=== PATIENT | female | born 1935 | race Caucasian/White ===

== ENCOUNTER 2023-06-08 22:13 | Inpatient (IN) | payer MEDICAID, MEDICARE ==
[~2023-06-08] VITALS: Ht 149.9 cm; Wt 43.5 kg
[2023-06-08 22:24] VITALS: BP_SYST 153; PULSE 70; RESP 20; TEMP 98.1; O2SAT 97
--- NOTE | 2023-06-08 23:19 | NUR ---
Patient to ER bed 05 to gown for evaluation. Side rails up. Report given to MARIPOSA GARCIA.
--- NOTE | 2023-06-08 23:20 | NUR ---
PT CAME VIA EMS FROM [facility], WHO SENT PT BECAUSE SHE IS EXPERIENCING DIFFICULTY SWALLOWING. PENDING md ASSESSMENT
--- NOTE | 2023-06-08 23:30 | NUR ---
ER AT BEDSIDE
[2023-06-08 23:42] LABS: BASOPHILS # (AUTO) 0.1 K/uL (0.0-0.2); BASOPHILS % (AUTO) 0.8 % (0.0-2.0); EOSINOPHILS # (AUTO) 0.2 K/uL (0.0-0.4); EOSINOPHILS % (AUTO) 2.5 % (0.0-4.0); HEMATOCRIT 37.9 % (36-48); HEMOGLOBIN 12.3 g/dL (12.0-16.0); LYMPHOCYTES # (AUTO) 1.7 K/uL (1.0-5.5); MEAN CORPUSCULAR HEMOGLOBIN 32 pg (27-31); MEAN CORPUSCULAR HGB CONC 33 % (32-36); MEAN CORPUSCULAR VOLUME 100 fL (79.0-98.0); MONOCYTES # (AUTO) 0.3 K/uL (0.0-1.0); MONOCYTES % (AUTO) 4.3 % (1.7-9.3); NEUTROPHILS # (AUTO) 4.8 K/uL (1.8-7.7); NEUTROPHILS % (AUTO) 68.4 % (40.0-70.0); PLATELET COUNT (AUTO) 192 K/uL (130-430); RED BLOOD CELL COUNT(AUTO) 3.81 MIL/uL (4.2-6.2); RED CELL DISTRIBUTION WIDTH 14.4 % (9.0-15.0)
[2023-06-08 23:55] LABS: ANION GAP 7 (5-15); CALCIUM 8.6 mg/dL (8.4-11.0); CHLORIDE 112 mmol/L (98-107); CREATININE 0.91 mg/dL (0.55-1.30); GLUCOSE 160 mg/dL (74-106); UREA NITROGEN, BLOOD 16 mg/dL (8-21)
[2023-06-09] LABS: ALANINE AMINOTRANSFERASE 6 U/L (12-78); ALBUMIN 2.8 g/dL (3.4-4.8); ASPARTATE AMINOTRANSFERASE 14 U/L (10-37); TOTAL BILIRUBIN 0.8 mg/dL (0.0-1.0)
--- NOTE | 2023-06-09 02:25 | NUR ---
Pt straight cath done for urine collection, 200 ml urine in bag. Urine color brown w/ visible thick seddiments. Pt tolerated well no s/s of distress noted. Urine taken to lab.
[2023-06-09 02:32] LABS: BILIRUBIN,URINE 2+ (NEGATIVE); BLOOD, URINE 3+ (NEGATIVE); CLARITY/URINE TURBID (CLEAR); GLUCOSE,URINE NEGATIVE (NEGATIVE); KETONES,URINE TRACE (NEGATIVE); LEUKOCYTE ESTERASE ,URINE 3+ (NEGATIVE); NITRITE, URINE POSITIVE (NEGATIVE); PROTEIN URINE 2+ (NEGATIVE)
[2023-06-09 02:39] LABS: COLOR,URINE AMBER (YELLOW)
[2023-06-09 02:47] LABS: BACTERIA,URINE MANY /HPF (None Seen); RBC,URINE >100 /HPF (0-3)
[2023-06-09 02:49] LABS: TRIPLE PHOSPHATE CRYSTAL,UR 0-10 /HPF (None Seen)
[2023-06-09] MEDS ORDERED: NACL 0.9% 1,000 ML IV ONE (03:00)
[2023-06-09] MEDS ORDERED: cefTRIAXone 1 GM in D5W 50 ML IV ONE (03:00)
--- NOTE | 2023-06-09 03:56 | NUR ---
Note teodoro in EDM - 06/09/23 at 0737 by [email or web address] Admit bed requested Patient will be admitted to care of Dr.M. Curtis. Admitted to Med Surg unit. Diagnosis UTI Inpatient (Yes or No) Observation (Yes or No) Orientation concerns or request close to nursing station (Yes or No) Covid Status On vent or bipap Isolation requirements Needs a sitter From Home (Yes or if No enter name of facility) [facility] Requires Dialysis (Yes or No) Med Rec Completed (Yes of No)
--- NOTE | 2023-06-09 03:56 | NUR ---
Admit bed requested Patient will be admitted to care of Dr. Orosco. Admitted to unit. Diagnosis Inpatient (Yes or No) Observation (Yes or No) Orientation concerns or request close to nursing station (Yes or No) Covid Status On vent or bipap Isolation requirements Needs a sitter [N From Home (Yes or if No enter name of facility) [N] [facility] Requires Dialysis (Yes or No) [N] Med Rec Completed (Yes of No) [Y]
[2023-06-09] MEDS ORDERED: AMLO5TAB4 PO (04:04)
[2023-06-09] MEDS ORDERED: LIP10 PO (04:05)
[2023-06-09] MEDS ORDERED: CELE200C PO (04:06)
[2023-06-09] MEDS ORDERED: APIX5TAB4 PO (04:07)
[2023-06-09] MEDS ORDERED: OMEG-95 PO (04:08)
[2023-06-09] MEDS ORDERED: PRO20 PO (04:09)
[2023-06-09] MEDS ORDERED: LEVE250T2 PO (04:10)
[2023-06-09] MEDS ORDERED: LOPE2CAP PO (04:10)
[2023-06-09] MEDS ORDERED: DICL100G33 TP (04:12)
[2023-06-09] MEDS ORDERED: LINA145C PO (04:13)
[2023-06-09] MEDS ORDERED: MELO10CA2 PO (04:15)
[2023-06-09] MEDS ORDERED: MEMA28CA PO (04:16)
[2023-06-09] MEDS ORDERED: MULT-1117 PO (04:16)
[2023-06-09] MEDS ORDERED: HYDR-3917 PO (04:17)
[2023-06-09] MEDS ORDERED: CALC-1263 PO (04:18)
[2023-06-09] MEDS ORDERED: BISM262O28 PO (04:19)
[2023-06-09] MEDS ORDERED: POTA-197 PO (04:20)
[2023-06-09] MEDS ORDERED: MIRT-114 PO (04:21)
[2023-06-09] MEDS ORDERED: SACC250C12 PO (04:22)
[2023-06-09] MEDS ORDERED: TRAM50TA2 PO (04:23)
[2023-06-09] MEDS ORDERED: ACET325T PO (04:24)
[2023-06-09] MEDS ORDERED: ASCO500T20 PO (04:25)
[2023-06-09] MEDS ORDERED: NS 500 ML IV ONE (04:30)
[2023-06-09] MEDS ORDERED: VITD2000 PO (04:32)
[2023-06-09] MEDS ORDERED: cefTRIAXone 1 GM VIAL ONE (05:27)
--- NOTE | 2023-06-09 06:00 | NUR ---
Pt was a difficult stick for an IV. 2nd attempt, 22g IV inserted. pt tolerated well, ivf/ iv anti Bx given as per orders
--- NOTE | 2023-06-09 07:00 | NUR ---
Pt is predominantly a amharic speaker
--- NOTE | 2023-06-09 07:48 | NUR ---
MED SURG REPORT GIVEN TO MARIPOSA MERAZ. OPPURTUNITY FOR QUESTIONS AND ANSWERS.
--- NOTE | 2023-06-09 08:05 | NUR ---
Patient will be admitted to care of HOSPITALIST. Admitted to MEDSURG unit. Will go to room 113B. Belongings list completed. Complete and up to date summary report printed. SBAR report to be given at bedside with opportunity for questions.
--- NOTE | 2023-06-09 08:10 | NUR ---
ADMISSION NOTES: RECEIVED PT FROM E.R C/O MARIPOSA CRAIG, PT ADMITTED WITH DC OF UTI UNDER DR Patricia SEQUEIRA. PT IS AO X1, EDUCATED ON THE USE OF CALL LIGHT , TV AND BED CONTROLS. PT NEEDS FURTHER INSTRUCTION.
[2023-06-09 09:00] VITALS: O2SAT 99
--- NOTE | 2023-06-09 10:44 | NUR ---
CONSULTATION PAGED/CALLED Reason for Consultation: [] DYSPHAGIA Person Who was Notified: [] SHU Consulting Physician: [] DR Timbo DE LA CRUZ Mathematical Scientist Specialty: [] GI Ordering Physician: [] DR SEQUEIRA
[2023-06-09] MEDS ORDERED: LORazepam 2 MG/ML VIAL IVP PRN (10:45)
[2023-06-09] MEDS ORDERED: ONDANSETRON HCL 4 MG/2 ML VIAL IVP PRN (10:45)
--- NOTE | 2023-06-09 10:52 | NUR ---
CONSULTATION PAGED REASON FOR CONSULTATION: DYSPHAGIA WAS CONSULT CALLED? Y PERSON WHO WAS NOTIFIED: CARMEN CONSULTING PHYSICIAN: TIP CEMENTER SPECIALTY: GI TIP CEMENTER PHONE NUMBER: [phone] REQUESTING PHYSICIAN: GERTRUDE KAPOOR
--- NOTE | 2023-06-09 10:55 | NUR ---
CONSULTATION PAGED/CALLED Reason for Consultation: [] SEPSIS Person Who was Notified: [] SACHA Consulting Physician: [] DR ANTONIO MULLEN Biofuels Production Technician Specialty: [] ID Ordering Physician: [] DR SEQUEIRA
[2023-06-09] MEDS: D5/0.45 NS 1,000 ML IV SCH ×2 (11:00→22:06)
[2023-06-09 14:23] VITALS: BP_SYST 158; PULSE 70; RESP 42; TEMP 97.8
--- NOTE | 2023-06-09 16:18 | NUR ---
DIFFICULTY SWALLOWING PER RN MUMTAZ, PT STARTED TO SHOW SIGNS OF DIFFICULTY SWALLOWING 3DAYS AGO. DURING THIS TIME, PT WAS NOTED NOT SWALLOWING SOME PARTICULAR ITEMS DURING MEALS BUT THEN YESTERDAY , PT HAS MORE DIFFICULTY SWALLOWING HER FOOD.
[2023-06-09 17:00] VITALS: BP_SYST 150; PULSE 70; RESP 24; TEMP 97.9; O2SAT 99
[2023-06-09] MEDS ORDERED: POTASSIUM CHLORIDE 40 MEQ, LIDOCAINE JECT 2% PF 100 MG 50 MG in NS 250 ML IV ONE (18:00)
[2023-06-09 20:00] VITALS: BP_SYST 142; PULSE 70; RESP 20; TEMP 97.5; O2SAT 100
--- NOTE | 2023-06-09 20:14 | NUR ---
ST EVALUATION COMPLETED. ST TX NOT INDICATED AT THIS TIME. RECOMMEND PO DIET OF PUREE/THIN LIQUID. 1:1 FEEDER AND FULL ASPIRATION PRECAUTIONS
[2023-06-10] VITALS (7 sets, daily range): BP systolic 137–154; PULSE 68–73; RESP 14–20; TEMP 97.5–98.2; O2SAT 94–100
[2023-06-10 05:27] LABS: BASOPHILS # (AUTO) 0.1 K/uL (0.0-0.2); BASOPHILS % (AUTO) 1.1 % (0.0-2.0); EOSINOPHILS # (AUTO) 0.2 K/uL (0.0-0.4); EOSINOPHILS % (AUTO) 2.6 % (0.0-4.0); HEMATOCRIT 39.1 % (36-48); HEMOGLOBIN 12.6 g/dL (12.0-16.0); LYMPHOCYTES # (AUTO) 2.3 K/uL (1.0-5.5); LYMPHOCYTES % (AUTO) 39.1 % (20.5-51.5); MEAN CORPUSCULAR HEMOGLOBIN 32 pg (27-31); MEAN CORPUSCULAR HGB CONC 32 % (32-36); MEAN CORPUSCULAR VOLUME 100 fL (79.0-98.0); MONOCYTES # (AUTO) 0.3 K/uL (0.0-1.0); MONOCYTES % (AUTO) 5.7 % (1.7-9.3); NEUTROPHILS # (AUTO) 3.1 K/uL (1.8-7.7); NEUTROPHILS % (AUTO) 51.5 % (40.0-70.0); PLATELET COUNT (AUTO) 165 K/uL (130-430); RED BLOOD CELL COUNT(AUTO) 3.91 MIL/uL (4.2-6.2); RED CELL DISTRIBUTION WIDTH 14.5 % (9.0-15.0)
[2023-06-10 05:55] LABS: ALANINE AMINOTRANSFERASE 5 U/L (12-78); ALBUMIN 2.7 g/dL (3.4-4.8); ANION GAP 11 (5-15); ASPARTATE AMINOTRANSFERASE 12 U/L (10-37); CALCIUM 8.1 mg/dL (8.4-11.0); CHLORIDE 112 mmol/L (98-107); CREATININE 0.59 mg/dL (0.55-1.30); GLUCOSE 129 mg/dL (74-106); TOTAL BILIRUBIN 0.7 mg/dL (0.0-1.0); UREA NITROGEN, BLOOD 8 mg/dL (8-21)
[2023-06-10] MEDS: D5/0.45 NS 1,000 ML IV SCH ×2 (06:37→12:50)
--- NOTE | 2023-06-10 07:45 | NUR ---
Opening Nurse Notes: Patient A/LO X1. Patient speaks Marshallese. Patient sleeping quietly in bed. Patient breathing even on room air. No pain, no SOB, no distress. Call light is within reach, bed in lowest position. Will continue with plan of care.
[2023-06-10] MEDS: cefTRIAXone 1 GM IVPB PREMIX 50 ML IV SCH (10:22)
--- NOTE | 2023-06-10 12:20 | NUR ---
Afternoon Nurse Notes: Patient lying in bed resting quietly. No SOB, no distress, no pain. Call light within reach. Bed locked and in lowest position. Patient is cooperative, daughter is at bedside. Will continue with plan of care.
[2023-06-10] MEDS ORDERED: K PHOS 15 MM in NS 250 ML IV ONE (13:00)
--- NOTE | 2023-06-10 15:13 | NUR ---
Dietitian Recommendations * Continue Pureed diet (ONS Ensure TID comes standard w/ current diet; ONS yields 1050 kcal/day, 60 gm protein/day) LP, MS, RD Please refer to Nutrition Assessment for details Addendum: 06/10/23 at [address] Amended: Links added.
--- NOTE | 2023-06-10 16:10 | NUR ---
Late Afternoon Nurse Notes: Patient lying in bed quietly. Pitcher of water is at bedside. No SOB, no distress, no pain. Call light within reach. Bed locked and in lowest position. Will continue with plan of care.
--- NOTE | 2023-06-10 19:10 | NUR ---
Closing Nurse Notes: Patient A/LO X1. Patient relaxing quietly in bed. Patient breathing even on room air. No pain, mild SOB, mild distress. Call light is within reach, bed in lowest position. Patient and care endorsed to security shift supervisor LESLY Hannah. Endorsed that patient was cooperative today.
--- NOTE | 2023-06-10 20:00 | NUR ---
OPENING NOTE PT LYING IN BED AND EYES CLOSED. A/OX1. UNABLE TO BREATHING EVEN AND NONLABORED ON RA. NO S/S OF ACUTE DISTRESS OR PAIN. IV RUNNING @ 1000 ON LEFT FOREARM. SAFETY CHECKS IN PLACE. CALL LIGHT IN REACH. CONTINUE TO MONITOR Addendum: 06/11/23 at 0322 by Camden Yi LVN IV RATE IS 100mL
--- NOTE | 2023-06-10 21:30 | NUR ---
BM PT HAD BM. PROVIDED PERINEAL CARE AND CHANGED LINENS. PT TOLERATED CHANGING HER POSITION.
[2023-06-11] VITALS (7 sets, daily range): BP systolic 137–148; PULSE 68–74; RESP 17–20; TEMP 96.2–97.5; O2SAT 94–99
[2023-06-11] MEDS: D5/0.45 NS 1,000 ML IV SCH ×3 (02:45→22:45)
--- NOTE | 2023-06-11 03:22 | NUR ---
ROUNDING NOTE PT LYING IN BED AND EYES CLOSED. BREATHING EVEN AND NONLABORED ON RA. ALL COMFORT MEASURE MET AT THIS MOMENT. SAFETY CHECKS IN PLACE. CALL LIGHT IN REACH. CONTINUE TO MONITOR
--- NOTE | 2023-06-11 06:58 | NUR ---
CLOSING NOTE PT LYING IN BED AND EYES CLOSED. BREATHING EVEN AND NONLABORED ON RA. IV RUNNING @100mL. NO S/S OF ACUTE DISTRESS OR PAIN. SAFETY CHECKS IN PLACE. CALL LIGHT IN REACH. ENDORSED TO DAY SHIFT NURSE
[2023-06-11 07:13] LABS: BASOPHILS # (AUTO) 0.1 K/uL (0.0-0.2); BASOPHILS % (AUTO) 0.8 % (0.0-2.0); EOSINOPHILS # (AUTO) 0.2 K/uL (0.0-0.4); EOSINOPHILS % (AUTO) 2.6 % (0.0-4.0); HEMATOCRIT 34.4 % (36-48); HEMOGLOBIN 11.3 g/dL (12.0-16.0); MEAN CORPUSCULAR HEMOGLOBIN 33 pg (27-31); MEAN CORPUSCULAR HGB CONC 33 % (32-36); MEAN CORPUSCULAR VOLUME 99 fL (79.0-98.0); MONOCYTES # (AUTO) 0.4 K/uL (0.0-1.0); MONOCYTES % (AUTO) 6.2 % (1.7-9.3); NEUTROPHILS # (AUTO) 3.5 K/uL (1.8-7.7); NEUTROPHILS % (AUTO) 57.4 % (40.0-70.0); PLATELET COUNT (AUTO) 159 K/uL (130-430); RED BLOOD CELL COUNT(AUTO) 3.46 MIL/uL (4.2-6.2); RED CELL DISTRIBUTION WIDTH 14.8 % (9.0-15.0); WHITE BLOOD COUNT (AUTO) 6.1 K/uL (4.8-10.8)
[2023-06-11 07:37] LABS: ANION GAP 10 (5-15); CALCIUM 8.1 mg/dL (8.4-11.0); CHLORIDE 113 mmol/L (98-107); CREATININE 0.66 mg/dL (0.55-1.30); GLUCOSE 111 mg/dL (74-106); UREA NITROGEN, BLOOD 8 mg/dL (8-21)
[2023-06-11 07:50] LABS: ERYTHROCYTE SEDIMENTATION RATE 12 MM/HR (0-20)
--- NOTE | 2023-06-11 08:24 | NUR ---
opening notes: pt in bed with eyes closed. updated patient board. no s/s of distress or pain noted. breathing is even and unlabored on RA 99%. all needs met at this time, safety checks made and call light within reach.
[2023-06-11] MEDS: cefTRIAXone 1 GM IVPB PREMIX 50 ML IV SCH (09:05)
--- NOTE | 2023-06-11 19:30 | NUR ---
OPENING NOTE PT LYING IN BED AND EYES CLOSED. IN CONTACT ISOLATION ROOM. A/OX1. BREATHING EVEN AND NONLABORED ON RA. NO S/S ACUTE DISTRESS OR PAIN. SAFETY CHECKS IN PLACE. CALL LIGHT IN REACH. CONTINUE TO MONITOR
--- NOTE | 2023-06-11 19:53 | NUR ---
closing notes: patient in bed with eyes closed. no s/s of distress or pain reported. breathing is even and labored on RA. patient placed on contact precautions and moved to new room for esbl-mdro in the urine. reported to gordy marsh. all needs met at this time, safety checks made and call light within reach. will endorse to shift production associate nurse.
--- NOTE | 2023-06-11 22:20 | NUR ---
BM PT HAD BM. LOOSE STOOL. LIGHT BROWN. PT TRIED TO TURN AND HOLD HER POSITION. PERFORM GOOD PERINEAL CARE. SAFETY CHECKS IN PLACE. CALL LIGHT IN REACH. CONTINUE TO MONITOR
[2023-06-12] VITALS: BP_SYST 150; PULSE 69; RESP 18; TEMP 96.8; O2SAT 96
--- NOTE | 2023-06-12 03:05 | NUR ---
ROUNDING NOTE PT LYING BED AND EYES CLOSED. BREATHING EVEN AND NONLABORED. ALL COMFORT MEASURE MET AT THIS MOMENT. SAFETY CHECKS IN PLACE. CALL LIGHT IN REACH. CONTINUE TO MONITOR
[2023-06-12] MEDS: D5/0.45 NS 1,000 ML IV SCH ×2 (05:27→18:45)
--- NOTE | 2023-06-12 07:38 | NUR ---
CLOSING NOTE PT LYING IN BED AND EYES CLOSED. BREATHING EVEN ON RA. A/OX1. IV RUNNING @ 100mL. SAFETY CHECKS IN PLACE. CALL LIGHT IN REACH. ENDORSED TO DAY SHIFT NURSE
[2023-06-12 08:00] VITALS: BP_SYST 161; PULSE 70; RESP 15; TEMP 97.2; O2SAT 99
--- NOTE | 2023-06-12 08:05 | NUR ---
opening notes: patient in bed with eyes closed. patient looked at me when i said her name. no s/s of distress or pain reported. breathing is even and unlabored on RA 99%. safety checks made and call light within reach.
[2023-06-12] MEDS: NITROFURANTOIN MONOHYD/M-CRYST 100 MG CAPSULE (MacroBID) PO SCH (08:40)
--- NOTE | 2023-06-12 08:46 | NUR ---
patient took oral morning medication with applesauce. when i asked her to swallow she nodded yes and then swallowed the medication. prepared patient LENY and dated cup. had patient take a few sips of LENY. safety checks made, bed alarm on and call light within reach.
[2023-06-12 08:51] LABS: BASOPHILS # (AUTO) 0.1 K/uL (0.0-0.2); BASOPHILS % (AUTO) 1.1 % (0.0-2.0); EOSINOPHILS # (AUTO) 0.2 K/uL (0.0-0.4); EOSINOPHILS % (AUTO) 3.2 % (0.0-4.0); HEMATOCRIT 34.6 % (36-48); HEMOGLOBIN 11.3 g/dL (12.0-16.0); LYMPHOCYTES # (AUTO) 2.3 K/uL (1.0-5.5); LYMPHOCYTES % (AUTO) 42.3 % (20.5-51.5); MEAN CORPUSCULAR HEMOGLOBIN 32 pg (27-31); MEAN CORPUSCULAR HGB CONC 33 % (32-36); MEAN CORPUSCULAR VOLUME 99 fL (79.0-98.0); MONOCYTES # (AUTO) 0.3 K/uL (0.0-1.0); MONOCYTES % (AUTO) 5.2 % (1.7-9.3); NEUTROPHILS # (AUTO) 2.6 K/uL (1.8-7.7); NEUTROPHILS % (AUTO) 48.2 % (40.0-70.0); PLATELET COUNT (AUTO) 171 K/uL (130-430); RED CELL DISTRIBUTION WIDTH 14.6 % (9.0-15.0); WHITE BLOOD COUNT (AUTO) 5.4 K/uL (4.8-10.8)
[2023-06-12 08:52] LABS: ANION GAP 8 (5-15); CALCIUM 8.6 mg/dL (8.4-11.0); CHLORIDE 112 mmol/L (98-107); CREATININE 0.59 mg/dL (0.55-1.30); GLUCOSE 79 mg/dL (74-106); UREA NITROGEN, BLOOD 6 mg/dL (8-21)
--- NOTE | 2023-06-12 09:02 | NUR ---
LEAH ATTENDING MD, DR SEQUEIRA FOR CRITICAL LAB.
[2023-06-12 09:05] LABS: ERYTHROCYTE SEDIMENTATION RATE 16 MM/HR (0-20)
[2023-06-12] MEDS ORDERED: POTASSIUM CHLORIDE 40 MEQ in NS 250 ML IV ONE (09:15)
[2023-06-12] MEDS ORDERED: Nitrofurantoin Monohyd/M-Cryst PO (10:07)
--- NOTE | 2023-06-12 11:31 | NUR ---
CM: faxed updated clinicals to Antonia/Geovanny Wang, informed that the pt is ESBL /UA. Antonia will send the clinicals to her DON for review.
[2023-06-12 12:00] VITALS: BP_SYST 159; PULSE 70; RESP 18; TEMP 97; O2SAT 94
[2023-06-12 13:17] VITALS: O2SAT 99
--- NOTE | 2023-06-12 15:51 | NUR ---
patient left forearm 22 gauge iv became infiltrated. removed it and replaced it with a right forearm 20 gauge. IV potassium was administered but the right forearm 20 gauge as become infiltrated as well. removed right forearm 20 gauge and patient has no iv access.
[2023-06-12 15:54] VITALS: BP_SYST 148; PULSE 68; RESP 18; TEMP 97; O2SAT 96
--- NOTE | 2023-06-12 19:36 | NUR ---
closing note: patient in bed with eyes opened. daughter janelle at bedside. updated her on plan of care. she verbalized understanding. no s/s of distress or pain reported. breathing is even and unlabored on RA 97%. all needs met at this time, safety checks made and call ligth within reach. will endorse to agile business analyst nurse.
[2023-06-12 20:00] VITALS: BP_SYST 154; PULSE 70; RESP 17; TEMP 96.3; O2SAT 98
--- NOTE | 2023-06-12 20:00 | NUR ---
ASSUMED CARE OF PATIENT AT THIS TIME. A/O X 1. VSS. AFEBRILE. RESPIRATIONS EVEN AND UNLABORED. NO RESPIRATORY DISTRESS NOTED AT THIS TIME. PATIENT HAS NO IV ACCESS AT THIS TIME. MD AWARE. PATIENT REPOSITIONED AND IS COMFORTABLE AT THIS TIME. DENIES PAIN AT THIS TIME. NO ACUTE DISTRESS NOTED. WILL CONTINUE TO MONITOR FOR SAFETY. Nikole STACY RN.
[2023-06-13 00:38] VITALS: BP_SYST 174; PULSE 70; RESP 20; TEMP 96; O2SAT 98
--- NOTE | 2023-06-13 01:00 | NUR ---
SLEEPING COMFORTABLY WITH NO DISTRESS NOTED. WILL CONTINUE TO MONITOR FOR SAFETY. Nikole STACY RN.
[2023-06-13] MEDS: D5/0.45 NS 1,000 ML IV SCH ×2 (04:45→16:07)
[2023-06-13 05:44] LABS: ERYTHROCYTE SEDIMENTATION RATE 13 MM/HR (0-20)
[2023-06-13 05:48] LABS: BASOPHILS # (AUTO) 0.2 K/uL (0.0-0.2); BASOPHILS % (AUTO) 2.9 % (0.0-2.0); EOSINOPHILS # (AUTO) 0.2 K/uL (0.0-0.4); EOSINOPHILS % (AUTO) 2.9 % (0.0-4.0); HEMATOCRIT 35.2 % (36-48); HEMOGLOBIN 11.6 g/dL (12.0-16.0); LYMPHOCYTES # (AUTO) 1.8 K/uL (1.0-5.5); LYMPHOCYTES % (AUTO) 29.6 % (20.5-51.5); MEAN CORPUSCULAR HEMOGLOBIN 33 pg (27-31); MEAN CORPUSCULAR HGB CONC 33 % (32-36); MEAN CORPUSCULAR VOLUME 99 fL (79.0-98.0); MONOCYTES # (AUTO) 0.3 K/uL (0.0-1.0); MONOCYTES % (AUTO) 5.4 % (1.7-9.3); NEUTROPHILS # (AUTO) 3.6 K/uL (1.8-7.7); NEUTROPHILS % (AUTO) 59.2 % (40.0-70.0); PLATELET COUNT (AUTO) 182 K/uL (130-430); RED BLOOD CELL COUNT(AUTO) 3.54 MIL/uL (4.2-6.2); RED CELL DISTRIBUTION WIDTH 14.2 % (9.0-15.0)
--- NOTE | 2023-06-13 06:19 | NUR ---
PATIENT REMAINS IN STABLE CONDITION. SLEPT WELL THROUGHOUT THE NIGHT WITH NO DISTRESS NOTED. Nikole STACY RN.
[2023-06-13 06:28] LABS: ALANINE AMINOTRANSFERASE 5 U/L (12-78); ALBUMIN 2.6 g/dL (3.4-4.8); ANION GAP 10 (5-15); ASPARTATE AMINOTRANSFERASE 16 U/L (10-37); CALCIUM 8.9 mg/dL (8.4-11.0); CHLORIDE 111 mmol/L (98-107); CREATININE 0.63 mg/dL (0.55-1.30); GLUCOSE 76 mg/dL (74-106); TOTAL BILIRUBIN 0.7 mg/dL (0.0-1.0); UREA NITROGEN, BLOOD 10 mg/dL (8-21)
--- NOTE | 2023-06-13 06:42 | NUR ---
RECEIVED A CALL FROM LAB THAT PATIENT'S POTASSIUM IS 2.8. PATIENT HAS NO IV ACCESS. DR. Patricia SEQUEIRA PAGED TO BE NOTIFIED. Nikole STACY RN.
--- NOTE | 2023-06-13 06:52 | NUR ---
DR. SEQUEIRA CALLED BACK AND INFORMED OF PATIENT'S POTASIUMM LEVEL OF 2.8 AND PATIENT HAS NO IV ACCESS. ORDERS GIVEN FOR K-DUR 40MEQ PO BID AND TO GET IV ACCESS. ORDERS PLACED. WILL ENDORSE TO DAY SHIFT NURSE. Nikole STACY RN.
--- NOTE | 2023-06-13 09:28 | NUR ---
SPOKE TO AMOS AT [facility] MRS NGUYEN WILL BE GETTING A ROOM TODAY.[phone]
[2023-06-13] MEDS: POTASSIUM CHLORIDE 20 MEQ TAB.PRT.SR PO SCH ×3 (09:43→21:23)
[2023-06-13] MEDS: NITROFURANTOIN MONOHYD/M-CRYST 100 MG CAPSULE (MacroBID) PO SCH ×2 (09:43→11:47)
[2023-06-13] MEDS ORDERED: Potassium Chloride PO (10:04)
[2023-06-13] MEDS ORDERED: CEFAZOLIN 1 GM IVPB PREMIX 50 ML IV ONE (11:00)
[2023-06-13 11:55] VITALS: BP_SYST 143; PULSE 69; RESP 18; TEMP 97.4; O2SAT 94
--- NOTE | 2023-06-13 15:13 | NUR ---
PHYSICAL THERAPY CO-SIGN The Physical Therapy Progress Notes documented by Principal Network Architect have been reviewed. Reviewed/Co-Signed by: Cl Patel Documentation Done by:PINA HAN Addendum: 06/13/23 at 1513 by Cl Patel PT Amended: Links added.
[2023-06-13 16:00] VITALS: BP_SYST 148; PULSE 71; RESP 19; TEMP 97.8; O2SAT 98
[2023-06-13 20:00] VITALS: O2SAT 98
--- NOTE | 2023-06-13 20:00 | NUR ---
ASSUMED CARE OF PATIENT AT THIS TIME. PATIENT IS A/O X 1. VSS.AFEBRILE. RESPIRATIONS EVEN AND UNLABORED. O2 SAT 98% ON ROOM AIR. IVF INFUSING WITH NO REDNESS OR IRRITATION TO SITE. 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 NO ACUTE DISTRESS NOTED. WILL CONTINUE TO MONITOR FOR SAFETY. Nikole STACY RN.
--- NOTE | 2023-06-13 20:21 | NUR ---
CALLED PATIENT'S DAUGHTER KATH TO OBTAIN CONSENT FOR PEG PLACEMENT IN AM. PATIENT'S DAUGHTER KATH STATES HER MOTHER DOES NOT HAVE SWALLOWING ISSUES AND SHE JUST DOESN'T LIKE THE FOOD AT THE FACILITY SHE CAME FROM. SHE SAID THEY FEED HER BIG CHUNKS OF FOOD AND SHE ISN'T ABLE TO EAT THAT. STATES SHE LIKES THE PUREED DIET ORDERED HERE. KATH STATES SHE WILL BRING HER MOM FOOD TOMORROW AND SHE HOW SHE DOES WITH FOOD FROM THE FAMILY AND IF SHE ISN'T SWALLOWING FOOD FROM HOME PROPERLY SHE WILL CONSENT FOR THE PEG PLACEMENT AT THAT TIME. DR. PIMENTEL POTTERY DECORATION DESIGNER FOR DR. DELAROSA CALLED AND NOTIFIED AND DR. PIMENTEL STATED TO JUST LET DR. DELAROSA KNOW IN AM. CHARGE NURSE JACINTO NOTIFIED WELL. Nikole STACY RN.
[2023-06-13] MEDS ORDERED: POTASSIUM CHLORIDE 40 MEQ, LIDOCAINE JECT 2% PF 100 MG 50 MG in NS 250 ML IV ONE (21:30)
[2023-06-13] MEDS ORDERED: KCL 40 mEq in 100 mL (PREMIX) 100 ML IV ONE (21:30)
[2023-06-14] VITALS (7 sets, daily range): BP systolic 131–163; PULSE 70–97; RESP 16–20; TEMP 97.2–98.3; O2SAT 0–98
--- NOTE | 2023-06-14 00:30 | NUR ---
PATIENT SLEEPING COMFORTABLY WITH NO ACUTE DISTRESS NOTED. WILL CONTINUE TO MONITOR FOR SAFETY. Nikole STACY RN.
[2023-06-14] MEDS: D5/0.45 NS 1,000 ML IV SCH (05:08)
[2023-06-14 05:20] LABS: ERYTHROCYTE SEDIMENTATION RATE 10 MM/HR (0-20)
[2023-06-14 05:26] LABS: BASOPHILS % (AUTO) 1.1 % (0.0-2.0); EOSINOPHILS # (AUTO) 0.2 K/uL (0.0-0.4); EOSINOPHILS % (AUTO) 4.2 % (0.0-4.0); HEMATOCRIT 30.6 % (36-48); HEMOGLOBIN 10.2 g/dL (12.0-16.0); LYMPHOCYTES # (AUTO) 1.9 K/uL (1.0-5.5); LYMPHOCYTES % (AUTO) 43.1 % (20.5-51.5); MEAN CORPUSCULAR HEMOGLOBIN 33 pg (27-31); MEAN CORPUSCULAR HGB CONC 33 % (32-36); MEAN CORPUSCULAR VOLUME 98 fL (79.0-98.0); MONOCYTES # (AUTO) 0.3 K/uL (0.0-1.0); MONOCYTES % (AUTO) 6.6 % (1.7-9.3); PLATELET COUNT (AUTO) 184 K/uL (130-430); RED BLOOD CELL COUNT(AUTO) 3.11 MIL/uL (4.2-6.2); RED CELL DISTRIBUTION WIDTH 14.3 % (9.0-15.0); WHITE BLOOD COUNT (AUTO) 4.3 K/uL (4.8-10.8)
[2023-06-14 05:44] LABS: ANION GAP 8 (5-15); CALCIUM 8.3 mg/dL (8.4-11.0); CHLORIDE 113 mmol/L (98-107); CREATININE 0.59 mg/dL (0.55-1.30); GLUCOSE 112 mg/dL (74-106); UREA NITROGEN, BLOOD 10 mg/dL (8-21)
[2023-06-14 05:54] LABS: INR 1.2 (0.8-1.2); PROTHROMBIN TIME 12.5 SECS (9.5-12.5)
--- NOTE | 2023-06-14 06:00 | NUR ---
PATIENT SLEPT WELL THROUGHOUT THE NIGHT WITH NO DISTRESS NOTED. REMAINS IN STABLE CONDITION. Nikole STACY RN.
[2023-06-14] MEDS: POTASSIUM CHLORIDE 20 MEQ TAB.PRT.SR PO SCH ×2 (08:53→21:45)
[2023-06-14] MEDS: NITROFURANTOIN MONOHYD/M-CRYST 100 MG CAPSULE (MacroBID) PO SCH (08:53)
[2023-06-14] MEDS: NORMAL SALINE 5 ML DISP.SYRIN IVF SCH ×2 (14:58→21:46)
--- NOTE | 2023-06-14 15:34 | NUR ---
PHYSICAL THERAPY CO-SIGN The Physical Therapy Progress Notes documented by Regional Sales Consultant have been reviewed. Reviewed/Co-Signed by: Cl Patel Documentation Done by:PINA HAN Addendum: 06/14/23 at 1535 by Cl Patel PT Amended: Links added.
--- NOTE | 2023-06-14 19:50 | NUR ---
OPENING NOTE PT LYING IN BED AND EYES CLOSED. BREATHING EVEN AND NONLABORED ON RA. NO S/S OF ACUTE DISTRESS OR PAIN. SAFETY CHECKS IN PLACE. CALL LIGHT IN REACH. CONTINUE TO MONITOR
--- NOTE | 2023-06-14 21:45 | NUR ---
MED KDUR SCHEDULED. ADMINISTERED MED CRUSHED AND MIX WITH APPLE SAUCE. PT TOOK IT WITHOUT ASPIRATION
--- NOTE | 2023-06-14 22:08 | NUR ---
NEW MED ORDER PT HAD 163/84. REPORTED TO DR. SEQUEIRA. AND RECEIVED ORDER CLONIDINE 0.1 mg PO Q6P WHEN SYSTOLIC >160. WILL RECHECK BP.
[2023-06-14] MEDS ORDERED: cloNIDine HCL 0.2 MG TABLET PO PRN (22:15)
[2023-06-15 00:13] VITALS: BP_SYST 148; PULSE 73; RESP 17; TEMP 98.3; O2SAT 97
[2023-06-15 02:47] VITALS: BP_SYST 131; PULSE 72; RESP 18; TEMP 97.6; O2SAT 98
--- NOTE | 2023-06-15 02:54 | NUR ---
ROUNDING NOTE PT LYING IN BED AND EYES CLOSED. BREATHING EVEN ON RA. ALL COMFORT MEASURE MET AT THIS MOMENT. NO PAIN NOTICED, SAFETY CHECKS IN PLACE. CALL LIGHT IN REACH. CONTINUE TO MONITOR
[2023-06-15] MEDS: NORMAL SALINE 5 ML DISP.SYRIN IVF SCH (06:26)
[2023-06-15 06:42] LABS: BASOPHILS % (AUTO) 0.8 % (0.0-2.0); EOSINOPHILS # (AUTO) 0.2 K/uL (0.0-0.4); EOSINOPHILS % (AUTO) 3.6 % (0.0-4.0); HEMATOCRIT 34.3 % (36-48); HEMOGLOBIN 11.3 g/dL (12.0-16.0); LYMPHOCYTES # (AUTO) 2.9 K/uL (1.0-5.5); LYMPHOCYTES % (AUTO) 49.9 % (20.5-51.5); MEAN CORPUSCULAR HEMOGLOBIN 33 pg (27-31); MEAN CORPUSCULAR HGB CONC 33 % (32-36); MEAN CORPUSCULAR VOLUME 99 fL (79.0-98.0); MONOCYTES # (AUTO) 0.3 K/uL (0.0-1.0); MONOCYTES % (AUTO) 5.5 % (1.7-9.3); NEUTROPHILS # (AUTO) 2.4 K/uL (1.8-7.7); NEUTROPHILS % (AUTO) 40.2 % (40.0-70.0); PLATELET COUNT (AUTO) 199 K/uL (130-430); RED BLOOD CELL COUNT(AUTO) 3.46 MIL/uL (4.2-6.2); RED CELL DISTRIBUTION WIDTH 14.6 % (9.0-15.0)
[2023-06-15 07:02] LABS: ANION GAP 5 (5-15); CALCIUM 8.8 mg/dL (8.4-11.0); CHLORIDE 114 mmol/L (98-107); CREATININE 0.67 mg/dL (0.55-1.30); GLUCOSE 79 mg/dL (74-106); UREA NITROGEN, BLOOD 8 mg/dL (8-21)
[2023-06-15 07:13] LABS: WHITE BLOOD COUNT (AUTO) 5.9 K/uL (4.8-10.8)
--- NOTE | 2023-06-15 07:22 | NUR ---
CLOSING NOTE PT LYING IN BED AND EYES CLOSED. BREATHING EVEN ON RA. NO S/S OF ACUTE DISTRESS OR PAIN. SAFETY CHECKS IN PLACE. CALL LIGHT IN REACH. ENDORSED TO DAY SHIFT NURSE
[2023-06-15 07:57] VITALS: BP_SYST 141; PULSE 66; RESP 22; TEMP 97.1; O2SAT 99
[2023-06-15 08:51] LABS: ERYTHROCYTE SEDIMENTATION RATE 16 MM/HR (0-20)
[2023-06-15] MEDS: NITROFURANTOIN MONOHYD/M-CRYST 100 MG CAPSULE (MacroBID) PO SCH (09:00)
[2023-06-15] MEDS: POTASSIUM CHLORIDE 20 MEQ TAB.PRT.SR PO SCH (09:11)
--- NOTE | 2023-06-15 13:45 | NUR ---
MRS NGUYEN WILL BE GOING TO [facility] TO ROOM 111B. I SET UP CALL THE CAR RESV#[id number]. 5PM DRONE SOFTWARE DEVELOPMENT ENGINEER AT [facility] IS AMOS [phone]
--- NOTE | 2023-06-15 15:42 | NUR ---
Nutrition F/U Admitting Diagnosis UTI Reviewed Pertinent Medical/Surgical Hx Medical History Comment: Per EMR review, 87 YOF w/ PMH of depression, DM, HTN, strokes, R-sided weakness, pacemaker, GERD, and dementia who presented to the ER d/t difficulty swallowing. Per EMS, the pt was brought in from [facility] after having dinner. The pt is normally on pureed diet and had a difficult time swallowing. The pt at baseline is A&O x1. 06/09/23 H&P -- Dx: Sepsis. UTI. Dysphagia. CAD. History of CVA w/ residual R-sided deficits. HTN. HLD. S/p pacemaker. GERD. Depression. Dementia. Epilepsy. Per Gastroenterology notes 06/14: PEG CONSIDERED BUT FAMILY DECLINE THUS NO CONSENT Active D/C planning for SNF, pending bed. Subjective Information Per EMR review, loose stool reported on 06/11. LBM 06/[address] rounded to pt bedside. Pt seen resting in bed. Lunch tray was sitting untouched by bedside. Maximum assistance w/ eating noted in EMR. Average PO intake of 36% x 9 meal records. CBW 101# via bedscale -- questionable 5# wt gain since last visit 5 days ago. Unable to assess pt's physical appearance d/t pt covered w/ linens. Current Diet Order/Nutrition Support Pureed x 5 days Patient/Significant Other Unable To Verbalize Education Provided Not Indicated Pertinent Medications D5%-1/2NS at 100 ml/hr (408 kcal/day) Pertinent Labs (06/25) K 3.8 WNL, BG 79 WNL, (06/13): Phos 2 L, ALT 5 L, ALB 2.7 L ANTHROPOMETRICS: Height 4'11 Weight 96#/43.5kg Patient Weight 43.545 kg Body Mass Index 19.39 kg/m2 %IBW 98 [place]/Adjusted Body Weight 98#/45 kg Recent Weight Change Unable to assess Weight Status Underweight Food Allergies Yes - lactose per EMR review Usual Diet At Home Pureed/regular AREA OPERATIONS DIRECTOR per nursing nutritional screening Skin Integrity Comment: Choco score: 13 -- no changes 06/15 Wounds: R arm ecchymosis noted Edema: bilat arm 1+ pitting and facial edema noted NEW Current PO % Poor - Avg 36% x 9 meal records Estimated Energy Expenditure (kcals/day) 0418-5298 (30-35 kcal/kg CBW d/t sepsis, wt gain promotion) Estimated Protein Required (g/day) 66-88 (1.5-2 gm/kg CBW d/t sepsis, wt gain promotion) Estimated Fluid Required (l/day) 1.1-1.3 (25-30 ml/kg CBW d/t GERIAT maintenance) Problem/Etiology/Signs/Symptoms Increased nutrient needs R/T metabolic demands AEB estimated nutritional requirements for sepsis. (Ongoing) Suboptimal nutrient intake R/T difficulty w/ self-feeding AEB average PO intakes of 36%. (NEW) Expected Outcomes/Goals - Monitor appetite and PO intakes w/ goal of pt meeting >50% of estimated nutritional needs, labs trending WNL, normal GI function, and skin integrity/wt maintenance Dietitian Recommendations * Continue Pureed diet (ONS Ensure TID comes standard w/ current diet; ONS yields 1050 kcal/day, 60 gm protein/day) * Encourage good PO intakes, 1:1 feedings Follow Up Mod Risk: F/U in 3-5 days
--- NOTE | 2023-06-15 16:53 | NUR ---
Report to registered nurse at [place] [facility]. Antiobiotic medication and reconciliation to follow.
[2023-06-15 17:00] VITALS: BP_SYST 120; PULSE 85; RESP 18; TEMP 99; O2SAT 95
--- NOTE | 2023-06-16 14:43 | NUR ---
PHYSICAL THERAPY CO-SIGN The Physical Therapy Progress Notes documented by Environmental Health Aide have been reviewed. Reviewed/Co-Signed by: Cl Patel Documentation Done by:PINA HAN Addendum: 06/16/23 at 1443 by Cl Patel PT Amended: Links added.
== END 2023-06-15 16:55 | DRG 720 ==
LOC: SED 22:13 → SMU 06-09 05:32
PROVIDERS: ADMIT Preventive Medicine Preventive Medicine/Occupational Environmental Medicine; ATTEND Preventive Medicine Preventive Medicine/Occupational Environmental Medicine
DX: A41.9 Sepsis, unspecified organism (principal); E43 Unspecified severe protein-calorie malnutrition; E83.51 Hypocalcemia; E83.39 Other disorders of phosphorus metabolism; F03.93 Unspecified dementia, unspecified severity, with mood disturbance; N39.0 Urinary tract infection, site not specified; E87.6 Hypokalemia; B96.20 Unspecified Escherichia coli [E. coli] as the cause of diseases classified elsewhere; B96.89 Other specified bacterial agents as the cause of diseases classified elsewhere; D64.9 Anemia, unspecified; E78.5 Hyperlipidemia, unspecified; R53.81 Other malaise; E88.09 Other disorders of plasma-protein metabolism, not elsewhere classified; G40.909 Epilepsy, unspecified, not intractable, without status epilepticus; I10 Essential (primary) hypertension; I25.10 Atherosclerotic heart disease of native coronary artery without angina pectoris; K21.9 Gastro-esophageal reflux disease without esophagitis; R73.9 Hyperglycemia, unspecified; D72.819 Decreased white blood cell count, unspecified; M19.90 Unspecified osteoarthritis, unspecified site; F32.A Depression, unspecified; R31.9 Hematuria, unspecified; Z16.12 Extended spectrum beta lactamase (ESBL) resistance; Z68.1 Body mass index [BMI] 19.9 or less, adult; Z95.0 Presence of cardiac pacemaker; Z86.73 Personal history of transient ischemic attack (TIA), and cerebral infarction without residual deficits; Z88.8 Allergy status to other drugs, medicaments and biological substances
CPT/HCPCS: 36415; 71045; 76770; 80048; 80053; 81000; 83605; 83735; 84100; 85025; 85610-TC; 85651-TC; 87040; 87081; 87086; 92610-GN; 97110-GP; 99291; J0690; J0696; J3480; J7050